=== PATIENT | female | born 1985 | race Caucasian/White ===

== ENCOUNTER 2018-05-22 11:34 | Emergency (ER) | payer MEDICAID ==
[2018-05-22] MEDS: IBUPROFEN 600 MG TAB PO (13:16)
== END 2018-05-22 15:05 | disposition home or self-care (01) ==
LOC: FTE 11:34
DX: S80.02XA Contusion of left knee, initial encounter (principal); W10.9XXA Fall (on) (from) unspecified stairs and steps, initial encounter; Y92.9 Unspecified place or not applicable
CPT/HCPCS: 29505; 73562; 99283-25